=== PATIENT | male | born 1970 | race Hispanic/Latino ===

== ENCOUNTER 2017-10-03 06:22 | Day surgery (SDC) | payer BC ==
[2017-10-03] MEDS ORDERED: ADRENALIN ONE (07:14)
[2017-10-03] MEDS ORDERED: XYLOCAINE 1% 20 mL ONE (07:14)
[2017-10-03] MEDS ORDERED: MARCAINE 0.25% INFILTRATI ONE ×2 (07:15→08:54)
[2017-10-03] MEDS ORDERED: ADRENALIN IV ONE ×2 (07:16→09:06)
[2017-10-03] MEDS ORDERED: SUBLIMAZE IV PRN (07:21)
--- NOTE | 2017-10-03 07:23 | Anesthesia Day of Surgery ---
Anesthesia Day of Surgery - Day of Surgery Patient Examined: Yes Patient H&P Reviewed: Yes Patient is NPO: Yes
--- NOTE | 2017-10-03 07:44 | Anesthesia Consultation ---
Anesthesia Consult and Med Hx Date of service: 10/03/17 - Airway Anesthetic Teeth Evaluation: Good ROM Head & Neck: Inadequate Mental/Hyoid Distance: Inadequate Mallampati Class: Class III Intubation Access Assessment: Possibly Difficult - Pulmonary Exam CTA: Yes - Cardiac Exam Cardiac Exam: RRR - Pre-Operative Health Status ASA Pre-Surgery Classification: ASA3 Proposed Anesthetic Plan: General - Pulmonary Hx Smoking: Yes (STOPPED X 10 YRS- 1 1/2PPD X 20 YRS) Hx Sleep Apnea: Yes (DX SLEEP APNEA WITH CPAP USE.) - Cardiovascular System Hx Hypertension: No - Gastrointestinal Hx Gastroesophageal Reflux Disease: Yes (controlled on meds) - Other Systems Hx Cancer: No Hx Obesity: Yes
[2017-10-03] MEDS ORDERED: NACL BACTERIOSTATIC INFILTRATI ONE (07:52)
[2017-10-03] MEDS ORDERED: PEPCID IV NR (08:00)
[2017-10-03] MEDS ORDERED: ANCEF/STERILE WATER 2 GM/20 ML IV NR (08:00)
[2017-10-03] MEDS ORDERED: NACL 0.9% 1000 ML 1,000 ML IV SCH ×2 (08:00)
[2017-10-03] MEDS ORDERED: DIPRIVAN 10 MG/ML IV ONE ×2 (08:43→08:58)
[2017-10-03] MEDS ORDERED: XYLOCAINE MPF 2% ONE (08:43)
[2017-10-03] MEDS ORDERED: SUBLIMAZE ONE (08:43)
[2017-10-03] MEDS ORDERED: XYLOCAINE 1% 20 mL INFILTRATI ONE (08:54)
[2017-10-03] MEDS ORDERED: ZOFRAN ONE ×2 (09:39→10:31)
--- NOTE | 2017-10-03 09:46 | Short Stay Summary ---
Short Stay Documentation Date of service: 10/03/17 - History H&P: obtained from office - Allergies and Medications Current Medications: Allergies No Known Allergies Allergy (Verified 09/29/17 14:55) Home Medications Medication Instructions Recorded Confirmed Last Taken Type AtorvaSTATin [Lipitor] 20 mg PO QHS 09/29/17 09/29/17 10/02/[address] [Voltaren Dr] 75 mg PO DAILY 09/29/17 10/03/17 09/28/17 History Glucosam/Flaco-Msm1/C/Maldonado/Bosw 1 each PO DAILY 09/29/17 10/03/17 09/28/17 History [Osteo Bi-Flex Caplet] Omeprazole 40 mg PO DAILY 09/29/17 09/29/17 10/02/17 History Active Medications Cefazolin Sodium (Ancef/Sterile Water 2 Gm/20 Ml) 2 gm IV PREOP NR Stop: 10/03/17 12:00 Famotidine (Pepcid) 20 mg IV PREOP NR Stop: 10/03/17 12:00 Last Admin: 10/03/17 08:21 Dose: 20 mg Fentanyl (Sublimaze) 50 mcg IV Q5MIN PRN PRN Reason: Pain , Severe (7-10) Stop: 10/03/17 15:00 Hydromorphone HCl (Dilaudid) 0.25 mg IV Q10MIN PRN PRN Reason: Pain, Moderate (4-6) Stop: 10/03/17 15:00 Sodium Chloride (Nacl 0.9% 1000 Ml) 1,000 mls @ 75 mls/hr IV DIRECT JOVANNI Last Admin: 10/03/17 08:05 Dose: 75 mls/hr - Brief post op/procedure progress note Date of procedure: 10/03/17 Pre-op diagnosis: left knee medial meniscus tear Post-op diagnosis: other (persistent left knee pain, medial and lateral meniscal tears) Procedure: left knee arthroscopy partial medial and lateral meniscectomy Anesthesia: GETA Findings: as above Surgeon: HERBERT CROW Estimated blood loss: minimal Pathology: none Condition: stable - Hospital course Hospital course: no perioperative complications - Disposition Condition at discharge: Good Short Stay Discharge Plan Follow up with: ROSALIE MARIN MD [Primary Care Provider] - 7 Days Forms: [facility]
--- NOTE | 2017-10-03 09:58 | Post Anesthesia Evaluation ---
- Post Anesthesia Evaluation Patient Participated: Yes Airway Patent: Yes Stable Respiratory Function: Yes Nausea/Vomiting: No Temp > 96.8F: Yes Pain Manageable: Yes Adequeate Hydration: Yes Anesthesia Complications: No
[2017-10-03] MEDS ORDERED: PERCOCET 5/325 PO PRN (10:02)
[2017-10-03] MEDS: DILAUDID IV PRN ×4 (10:20→10:45)
[2017-10-03] MEDS ORDERED: ZOFRAN IV PRN (10:35)
[2017-10-03 11:50] VITALS: BP 128/89
--- NOTE | 2017-10-03 13:51 | Operative Report ---
PREOPERATIVE DIAGNOSES: Persistent left knee pain with mechanical symptoms with medial meniscus tear. POSTOPERATIVE DIAGNOSES: Persistent left knee pain, large complex tear located within the posterior horn of the medial meniscus, small radial tear located within the anterior horn of the lateral meniscus, grade 3 articular cartilage loss of the entire weightbearing portion of the medial femoral condyle, small cartilaginous loose bodies located diffusely throughout the knee. OPERATIVE PROCEDURE: Left knee arthroscopy, partial medial and lateral meniscectomies. SURGEON: Jose Armando Bartholomew M.D. INSPECTOR OF WEIGHTS AND MEASURES: None. ANESTHESIA: General. PREOPERATIVE ANTIBIOTICS: Ancef 2 grams IV within 1 hour of skin incision. DVT PROPHYLAXIS: Open toe thigh-high compression stockings and SCD pumps to the nonoperative right lower extremity. OPERATIVE COMPLICATIONS: None. PREOPERATIVE HISTORY AND PHYSICAL: This is a 46-year-old male who has had persistent progressive worsening of left knee pain with mechanical symptoms. The pain is markedly limiting his day-to-day activities and has failed to improve despite extensive nonoperative treatment. MRI scan was performed, which was positive for a large complex tear located in the posterior horn of the medial meniscus as well as a mild articular cartilage wear at the medial patellofemoral compartments. The patient's MRI findings and diagnosis were discussed at length and after making sure the patient understood the diagnosis, all questions answered, we discussed treatment alternatives, surgical and nonsurgical including risks and benefits of both. After a long lengthy discussion, the patient opted to proceed with operative intervention. This will entail a left knee arthroscopy, partial medial meniscectomy, and surgery as indicated. The risks of which were discussed to include but not exclusive of infection, blood loss, nerve damage, loss of range of motion, persistent pain. Again, the patient understood all of his questions were answered, and he wished to proceed with operative intervention. DESCRIPTION OF PROCEDURE: The patient was seen in the preoperative holding room area at which point informed consent was reviewed and appropriate. The left lower extremity was identified and then marked. The patient was then brought back to the operating room, placed supine on the standard operating room table, at which point, general anesthesia was administered and an LMA tube was inserted. After confirmation of adequate general anesthesia, checking appropriate placement of the LMA tube, we then made sure that all bony prominences were well padded that there were no wrinkles in the compression stockings on the right lower extremity and SCD pumps were applied to the right lower extremity. The arm secured in neutral position on the patient's side with the aid of the arm boards. The head was secured in nice neutral position as well. The left lower extremity was then examined under anesthesia. The patient was seen to have full range of motion 0 to 130 degrees of flexion. There was no ligamentous instability. Negative Trinh, negative anterior drawer, negative posterior drawer. No varus valgus instability at 0 as well as 30 degrees of flexion. No recurvatum or excessive external rotation. Following examination under anesthesia, the left lower extremity was then prepped and draped in the usual sterile fashion. After prepping and draping, a timeout was called. The appropriate left lower extremity was identified which again had been marked in the preoperative holding room. I began the procedure by injecting the knee with 30 mL of 0.25% Marcaine with epinephrine and 30 mL of 1% lidocaine without epinephrine which the patient tolerated well. There were no complications. Once again proceeded by first making a standard anterolateral portal with #15 blade. Once the portal was established, a cannula with a blunt trocar was inserted into the intra-articular aspect of the knee joint. This went without difficulty or damage to articular cartilage. Once in place, the arthroscopic camera was immediately placed in the medial compartment establishing anteromedial portal by first inserting 18 gauge spinal needle under direct arthroscopic visualization. Once confirmed to be in appropriate position, a 15 blade was then used to establishe anterior portal. Once the portal was established, a blunt trocar was inserted to widen the portal site followed by an arthroscopic probe. We began a diagnostic arthroscopy to the medial compartment. The patient had a large complex tear located within the posterior horn of the medial meniscus. This was irreparable and we performed a partial medial meniscectomy in standard fashion using series of basket punches and the 4.0 meniscal shaver getting down to a nice smooth stable healthy remaining border. There was grade 3 articular cartilage loss almost the entire weightbearing portion of the medial femoral condyle. Inspection of the notch showed to be some degenerative wear of the ACL; however, was intact and stable when probed. The posterior cruciate ligament also intact and stable when probed. Inspection of lateral compartment was carried out by placing the knee in a [id number] position. Once in position, we saw there was a small radial tear looking in the anterior horn of the lateral meniscus involving the white-white zone. This was the series of basket punches and 4.0 meniscal shaver getting a nice smooth stable healthy remaining portal. Inspection of the medial and lateral gutters showed these to be free and clear of all loose bodies. Inspection of the patellofemoral joint showed to be mild grade 1/2 articular cartilage loss to the central aspect of the patella and trochlea. There were several small cartilage loose bodies located within the suprapatellar pouch, which were removed using the arthroscopic shaver. Following this, arthroscopic camera was then placed in the posterior aspect of the knee adjacent to cruciate ligament and femoral condyle. Once in the posterior aspect of the knee, we saw that there were no root tears present. There were no loose bodies present. Arthroscopic camera was then removed through posterior aspect of the knee. The arthroscopic pump was turned off to make sure there was good hemostasis and once this was confirmed, a straight full suction from the knee using arthroscopic cannula. Following this, all the arthroscopic instrumentation was removed. The two portal sites were then closed with 3-0 nylon in simple fashion. Adaptic, 4 x 4s, ABD, cast padding, Kapil wrap, and open toe thigh-high compressive stocking was applied. The patient awakened from general anesthesia without complications, taken to recovery room in stable condition, standard postoperative orders were written. JOB# [id number] MAREK/ADAMA
== END 2017-10-03 12:00 | disposition home or self-care (01) ==
LOC: OR 06:22
PROVIDERS: ATTEND Orthopaedic Surgery
DX: S83.232A Complex tear of medial meniscus, current injury, left knee, initial encounter (principal); S83.282A Other tear of lateral meniscus, current injury, left knee, initial encounter; G47.33 Obstructive sleep apnea (adult) (pediatric); K21.9 Gastro-esophageal reflux disease without esophagitis; E66.9 Obesity, unspecified; Z68.41 Body mass index [BMI] 40.0-44.9, adult; Z87.891 Personal history of nicotine dependence; X58.XXXA Exposure to other specified factors, initial encounter; Y93.89 Activity, other specified; Y92.89 Other specified places as the place of occurrence of the external cause; Y99.8 Other external cause status
CPT/HCPCS: 29880; 97116; J0171; J0690; J1170; J2405; J2704; J3010; J7030